=== PATIENT | female | born 1980 | race Caucasian/White ===

== ENCOUNTER 2024-11-05 07:56 | Outpatient (AMB) | payer OTHER, SELFPAY ==
--- NOTE | 2024-11-05 08:05 | A.OFFVIS_ITS ---
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 Hx of injury in February when she was doing a 5 mile walk. Patient reports ongoing pain since February. States her pain is focused near the groin area and it raps around her leg. Pain is worse when she is walking and running. Patient has tried 6 weeks of PT, NSAIDs, and at home exercises with resting with no relief. Allergies amoxicillin [From Augmentin] Allergy (Severe, Verified 11/05/24 08:14) intestinal distress clavulanic acid [From Augmentin] Allergy (Severe, Verified 11/05/24 08:14) intestinal distress HPI HPI TACK WELDER LT hip pain: Details: The patient is a 44-year-old female presenting with persistent left hip pain, which began in February subsequent to a long walk. Initially, the patient chose to rest, reducing physical activities such as running, but the pain continued unabated, exacerbating with physical exertion. Over the months, the patient has noted that physical activity worsens the pain, which is now a constant, bothersome symptom, peaking with activity. A subsequent back injury in the region of the sacroiliac joint around further complicated her musculoskeletal condition. Following a period of limited mobility, she engaged in a six-week course of physical therapy, which addressed both back and hip pain, yet the hip pain persists. The pain is localized to the left groin and is accompanied by an occasional clicking sensation during certain movements. Notably, physical maneuvers involving resistance, such as pushing the leg outwards, induce discomfort, specifically in the groin area, implicating possible weakness or strain. Despite these symptoms, there was no identifiable resolution through physical therapy, warranting further diagnostic evaluation. [facility] Social History (Updated 11/05/24 @ 08:15 by Debbie Hall) Alcohol intake: current Alcohol intake frequency: holidays/special occasions only Patient Tobacco Use Status: Never used Tobacco Current occupational status: employed Current occupation: Teacher/ right hand dominant Review of Systems Const All systems reviewed & are unremarkable except as noted in HPI and below Physical Exam Vital Signs: BMI result Body Mass Index 22.2 Const General: cooperative, healthy appearing and no acute distress Resp Effort & Inspection: normal respiratory effort and able to speak in complete sentences Cardio Rate: regular rate Peripheral pulses: Peripheral pulses 2+ throughout Skin Lesions: no lesions Rashes: no rashes Extrem Other: Left hip: Normal to inspection. Full hip ROM in all planes. No tenderness to palpation over the greater trochanteric bursa. 4/5 strength with resisted hip flexion, knee extension, abduction, and abduction. Reproduction of groin pain with resisted range of motion testing. Able to perform straight leg raise. NVI. Assessment & Plan Assessment & Plan (1) Left hip impingement syndrome: Code(s): M25.852 - Other specified joint disorders, left hip Category: Medical Plan I discussed with the patient the persistence of left hip pain and the limitations of x-ray imaging in assessing soft tissue conditions. I explained the necessity of obtaining an MRI to obtain a clearer understanding of her hip's condition, which may provide detailed information about any ligamentous, cartilaginous, or soft tissue abnormalities. I emphasized that this is a common step and not indicative of severe pathology. The patient was informed about the benefits of early diagnosis and potential treatment options. The implications of potential findings, as well as follow-up steps, were addressed thoroughly. The importance of communicating post-MRI was stressed to determine further management strategies. In the meantime, the patient will avoid any activities that exacerbate his pain until further guidance is provided. X-rays of the left hip and pelvis which were obtained while in the office today and were reviewed by me, Michelle Gastelum PA-C, revealed no acute abnormalities. Orders: Orders XR hip LT min 2V Today M25.559 - Pain in unspecified hip Coding Level of Care Code New Pt Level 4 (73765) Diagnoses Left hip impingement syndrome M25.852
[2024-11-05 08:15] VITALS: BMI 22.2
== END 2024-11-05 08:35 | disposition home or self-care (01) ==
LOC: HO.HOS 07:57
PROVIDERS: PCP Internal Medicine; Visit Provider Physician Assistant
DX: M25.852 Other specified joint disorders, left hip (principal)
CPT/HCPCS: 99203

== ENCOUNTER → 2024-11-05 07:58 | Outpatient (BNV) | payer OTHER, SELFPAY | PROVIDERS: Visit Provider Radiology Diagnostic Radiology | DX: M25.552 Pain in left hip (principal) | CPT/HCPCS: 73502 ==

== ENCOUNTER 2024-11-05 08:48 | Outpatient (REF) | payer OTHER, SELFPAY ==
--- NOTE | ~2024-11-05 | XR_ITS ---
EXAMINATION: XR HIP 2 OR MORE VIEWS LEFT HISTORY: M25.559 - Pain in unspecified hip COMPARISON: There are no prior studies for comparison. FINDINGS: A single AP view of the pelvis and two views of the left hip are submitted. Osseous mineralization is normal. There is no fracture or dislocation. The joint space is maintained. The soft tissues are unremarkable. XR/XR hip LT min 2V IMPRESSION: Unremarkable examination of the left hip. Electronically signed by: Damian Leyva MD 11/05/2024 01:51 PM EDT
== END 2024-11-05 08:49 | disposition home or self-care (01) ==
LOC: HO.HOSX 08:48
PROVIDERS: Visit Provider Physician Assistant
DX: M25.559 Pain in unspecified hip (principal)
CPT/HCPCS: 73502

== ENCOUNTER 2024-11-16 18:17 | Outpatient (REF) | payer OTHER, SELFPAY ==
--- NOTE | ~2024-11-16 | MR_ITS ---
CLINICAL HISTORY: M25.852 - Other specified joint disorders, left hip MR left hip Comparison: DX - XR HIP LT MIN 2V - 11/05/24 07:58 EDT Findings: No fracture, bone marrow edema or osseous lesion. No dislocation Normal alignment without subluxation. No retroversion, over coverage, os acetabuli. Normal head neck angle. No fibrocystic lesion of the femoral neck. No dysplasia. No joint effusion. No identified labral tear. The femoral and acetabular cartilage are intact. The capsule and ligaments are normal. Unremarkable muscle, tendons and entheses. Normal vessels, nerves and soft tissues. There dilated tortuous veins in the left pelvis. In the left adnexa there is fluid signal region measuring 3.0 cm in transverse dimension. Impression: Unremarkable left hip. Dilated, tortuous veins in the left pelvis may indicate pelvic congestion. Correlate clinically for signs/symptoms of pelvic congestion syndrome Fluid signal region in the left adnexa measuring 3.0 cm in transverse dimension could be a dilated pelvic vein or hydrosalpinx. Consider further evaluation with a dedicated pelvic ultrasound. This document has been electronically signed by: Yani Rubalcava MD on 11/19/2024 22:18:28
== END 2024-11-16 18:18 | disposition home or self-care (01) ==
LOC: HO.MRI 18:17
PROVIDERS: PCP Internal Medicine; Visit Provider Physician Assistant
DX: M25.852 Other specified joint disorders, left hip (principal)
CPT/HCPCS: 73721

== ENCOUNTER → 2024-11-16 18:25 | Outpatient (BNV) | payer OTHER, SELFPAY | PROVIDERS: PCP Internal Medicine; Visit Provider Radiology Diagnostic Radiology | DX: M25.852 Other specified joint disorders, left hip (principal) | CPT/HCPCS: 73721 ==

== ENCOUNTER 2024-11-23 10:13 | Outpatient (AMB) | payer OTHER, SELFPAY ==
--- NOTE | 2024-11-23 10:16 | A.OFFVIS_ITS ---
Intake Visit Reasons: Tele - left hip MRI review Intake Note: Laxmi is a 44 year old female who presents today via telephone for a MRI review of her left hip. Allergies amoxicillin [From Augmentin] Allergy (Severe, Verified 11/23/24 10:18) intestinal distress clavulanic acid [From Augmentin] Allergy (Severe, Verified 11/23/24 10:18) intestinal distress HPI HPI Tele - left hip MRI review: Details: Ms. Cohen is a 44-year-old female who presents via telehealth appointment for review of MRI imaging of the left hip. She reports continuation of symptoms with no change. [facility] Social History Alcohol intake: current Alcohol intake frequency: holidays/special occasions only Patient Tobacco Use Status: Never used Tobacco Current occupational status: employed Current occupation: Teacher/ right hand dominant Review of Systems Const All systems reviewed & are unremarkable except as noted in HPI and below Physical Exam Extrem Other: Deferred due to telehealth Telehealth Telehealth Telehealth Platform: Telephone Location of provider rendering services: practice address Location of patient: address on file Patient Identification confirmed using: Name, : Yes Telehealth method: voice only Patient verbally consented to treatment: Yes Patient verbally consented to billing insurance company: Yes Patient informed of any privacy concerns related to visit: Yes Minutes spent on Phone/Video with Pt.: 10 Assessment & Plan Assessment & Plan (1) Pelvic congestion syndrome: Code(s): N94.89 - Other specified conditions associated with female genital organs and menstrual cycle Category: Medical Plan During our telehealth appointment I discussed the results of the left hip MRI with the patient. Orthopedically the left hip is unremarkable. There is some question of pelvic congestion syndrome. Patient reports that she spoke with her primary care provider and was referred to [facility] for [facility] evaluation and treatment. I am in agreement with this plan. Should the patient wish to seek a 2nd opinion I am happy to place a referral to our vascular Department. Patient will follow up PRN, sooner if needed. Left hip MRI obtained on 11/19/2024: Impression: Unremarkable left hip. Dilated, tortuous veins in the left pelvis may indicate pelvic congestion. Correlate clinically for signs/symptoms of pelvic congestion syndrome Fluid signal region in the left adnexa measuring 3.0 cm in transverse dimension could be a dilated pelvic vein or hydrosalpinx. Consider further evaluation with a dedicated pelvic ultrasound. Coding Level of Care Code Est Pt Level 3 (71420) Diagnoses Pelvic congestion syndrome N94.89
--- OUTSIDE RECORDS SUMMARY | 2024-11-23 11:04 | XMS_ITS | Continuity of Care Document ---
Author Organization [facility] [address] [place] [address] Phone [phone] Social History Type Date Description Comments Sex Unknown Medical Devices Description No Information Available Encounters Description No Information Available Assessments Description No Information Available Plan of Treatment No Information Available Functional Status Description No Information Available Mental Status Description No Information Available Referrals Description No Information Available
--- OUTSIDE RECORDS SUMMARY | 2024-11-23 11:04 | XMS_ITS | Continuity of Care Document ---
Author Organization [facility] [place] [address] [place] [address]- Care Team Providers Care Agent Ticketing Gate Name Role Phone Abdullahi Mast MD Primary Care Physician Encounter 11/14/24 - 11/21/24 [facility] [address], [address] [place], [place] [address] Attending Physician: Staci Lockett CNM Admitting Physician: Staci Lockett CNM Referring Physician: Staci Lockett CNM Encounter Type: OutPatient One Time Allergies, Adverse Reactions, Alerts No Known Allergies Immunizations Given and Recorded Vaccine Date Status Refusal Reason tetanus/diphtheria/pertussis, acel(Tdap) 1 10/31/11 Given 1Admin Note: VIS given 08/31/11 Medications Breast Pump See Instructions, # 1 units, Maintenance, double electric-use as directed, 02/28/13 11:28:26 AM EDT Start Date: 02/28/13 Status: Ordered Quantity: 1.0 Unit: Units Repeat number: 1 Colace sodium 100 mg oral capsule 1 capsule = 100 mg, By Mouth, 2 times a day, PRN for constipation, # 20 capsule, 0 Refills, Maintenance, 02/28/13 11:28:19 AM EDT, Capsule Start Date: 02/28/13 Status: Ordered Quantity: 20.0 Unit: capsule Repeat number: 1 Diflucan Tablet 150 mg, By Mouth, Once, # 1 capsule, Refills 1, Tot. Refills 1, 06/20/09 3:27:54 PM EST Start Date: 06/20/09 Status: Ordered Quantity: 1.0 Unit: capsule Repeat number: 2 ibuprofen 600 mg oral tablet 1 tablet = 600 mg, By Mouth, 4 times a day, PRN Pain, # 40 tablet, 0 Refills, Maintenance, 02/28/13 11:28:01 AM EDT, Tablet Start Date: 02/28/13 Status: Ordered Quantity: 40.0 Unit: tablet Repeat number: 1 Ortho Tri-Cyclen 1 tablet, By Mouth, Daily, # 28 tablet, 2 Refills, 01/09/07 10:05:18 AM EDT Start Date: 01/09/07 Stop Date: 04/03/07 Status: Ordered Quantity: 28.0 Unit: tablet Repeat number: 3 Ortho Tri-Cyclen oral tablet 1 tablet, By Mouth, Daily, # 28 tablet, 3 Refills, Maintenance, 03/12/10 5:15:46 PM EDT, [id number] Start Date: 03/12/10 Status: Ordered Quantity: 28.0 Unit: tablet Repeat number: 4 Ortho Tri-Cyclen oral tablet 1, tablet, By Mouth, Daily, # 28 tablet, 1 Refills Start Date: 02/22/08 Stop Date: 04/18/08 Status: Ordered Quantity: 28.0 Unit: tablet Repeat number: 2 oxycodone 5 mg oral tablet 1 tablet = 5 mg, By Mouth, Every 4 hours, PRN for pain, # 30 tablet, 0 Refills, Maintenance, 02/28/13 11:28:24 AM EDT, Tablet Start Date: 02/28/13 Status: Ordered Quantity: 30.0 Unit: tablet Repeat number: 1 Tri-Sprintec oral tablet 1 tablet, By Mouth, Daily, # 28 tablet, 11 Refills, Maintenance, 07/01/10 2:49:59 PM EST, [id number] Start Date: 07/01/10 Stop Date: 06/02/11 Status: Ordered Quantity: 28.0 Unit: tablet Repeat number: 12 Problem List Condition Confirmation Course Effective Dates Status [facility] Informant Carlos portillo Confirmed Active Results Radiology Reports * Exam Date Time Procedure Performing Provider Status 11/14/24 3:20 PM US Breast Bilateral Limited Yong Clemente otoniel; Auth (Verified) Notes: (US Breast Bilateral Limited) Reason For Exam: 1 year bilateral follow up RESULT: US Breast Bilateral Limited PROCEDURE: MM Digital Mammo Bilateral, US Breast Bilateral Limited INDICATION: Probably benign bilateral breast masses, short-term interval surveillance. COMPARISON: Multiple prior mammograms most recently dated 11/08/2023. TECHNIQUE: Digital diagnostic mammogram consisting of full field 3-D Tomosynthesis views of each breast in the CC and MLO projections. Computer-aided detection (CAD) was utilized in the interpretation of this study. Targeted ultrasound evaluation of each breast was also performed DENSITY: The breast tissue is heterogeneously dense, which may obscure small masses. FINDINGS: Right breast: Subcentimeter focal asymmetry within the anterolateral right breast is stable in size dating back to 10/12/2022. No evidence of developing mass, suspicious clustering of microcalcification, architectural distortion, or secondary sign of malignancy. Targeted ultrasound evaluation of the right breast was performed centered at 8:00 3 cm from the nipple. 0.3 x 0.2 cm hypoechoic focus containing a probable echogenic hilus has not significantly changed in appearance over 2 years of follow-up in keeping with a benign finding likely intramammary lymph node. Left breast: Asymmetry under surveillance within the anterior third lateral to the nipple line seen on CC tomographic image 13 of 63 is stable in size. No evidence of developing mass, suspicious clustering of microcalcification, architectural distortion, or secondary sign of malignancy. Targeted ultrasound evaluation of the left breast was performed centered at 4:00 4 cm from the nipple 0.2 x 0.2 x 0.2 cm nodule isoechoic to surrounding fat is stable in size over 2 years of follow-up in keeping with benign finding. IMPRESSION: Bilateral breast asymmetries and sonographic correlates are stable in size over 2 yearsof follow-up in keeping with benign findings No mammographic evidence of malignancy or adverse interval change. RECOMMENDATION: Annual mammographic screening BI-RADS: 2 (Benign) Lay letter mailed to patient WSN: [id number] Ordering Physician: Staci Lockett Dictated By: Kavon Lozada Jr, MD Dictated Date/Time: 11/14/24 4:19 pm Reviewed By: Kavon Lozada Jr, MD Signed By: Kavon Lozada Jr, MD Signed Date/Time: 11/14/24 4:19 pm Transcribed By: CSB Transcribed Date/Time: 11/14/24 3:22 pm * Exam Date Time Procedure Performing Provider Status 11/14/24 2:46 PM MM Digital Mammo Bilateral Valdivia , Melissa gil; Auth (Verified) Notes: (MM Digital Mammo Bilateral) Reason For Exam: 1 year bilateral follow up RESULT: MM Digital Mammo Bilateral PROCEDURE: MM Digital Mammo Bilateral, US Breast Bilateral Limited INDICATION: Probably benign bilateral breast masses, short-term interval surveillance. COMPARISON: Multiple prior mammograms most recently dated 11/08/2023. TECHNIQUE: Digital diagnostic mammogram consisting of full field 3-D Tomosynthesis views of each breast in the CC and MLO projections. Computer-aided detection (CAD) was utilized in the interpretation of this study. Targeted ultrasound evaluation of each breast was also performed DENSITY: The breast tissue is heterogeneously dense, which may obscure small masses. FINDINGS: Right breast: Subcentimeter focal asymmetry within the anterolateral right breast is stable in size dating back to 10/12/2022. No evidence of developing mass, suspicious clustering of microcalcification, architectural distortion, or secondary sign of malignancy. Targeted ultrasound evaluation of the right breast was performed centered at 8:00 3 cm from the nipple. 0.3 x 0.2 cm hypoechoic focus containing a probable echogenic hilus has not significantly changed in appearance over 2 years of follow-up in keeping with a benign finding likely intramammary lymph node. Left breast: Asymmetry under surveillance within the anterior third lateral to the nipple line seen on CC tomographic image 13 of 63 is stable in size. No evidence of developing mass, suspicious clustering of microcalcification, architectural distortion, or secondary sign of malignancy. Targeted ultrasound evaluation of the left breast was performed centered at 4:00 4 cm from the nipple 0.2 x 0.2 x 0.2 cm nodule isoechoic to surrounding fat is stable in size over 2 years of follow-up in keeping with benign finding. IMPRESSION: Bilateral breast asymmetries and sonographic correlates are stable in size over 2 yearsof follow-up in keeping with benign findings No mammographic evidence of malignancy or adverse interval change. RECOMMENDATION: Annual mammographic screening BI-RADS: 2 (Benign) Lay letter mailed to patient WSN: [id number] Ordering Physician: Staci Lockett Dictated By: Neville Castro MD, Kavon Foote Dictated Date/Time: 11/14/24 4:19 pm Reviewed By: Kavon Lozada Jr, MD Signed By: Kavon Lozada Jr, MD Signed Date/Time: 11/14/24 4:19 pm Transcribed By: KINGA [employer] Retailer Sales Consultant Date/Time: 11/14/24 3:22 pm Birads: Patient Care team information Care Team Personnel Name: Adeline PERSON, Ansley Urena Position: [facility] PROGRAM HOST MD Member Role: [employer] PROGRAM HOST Physician Address: [address] [place] [address], [facility] [address] [facility] [place] [address]- Telecom: Name: Abdullahi Mast MD Position: [facility] Outreach Member Role: PCP Address: [address] [place] [address]- Telecom: Care Team Related Persons Name: CLINT ROMERO Name: ALEJANDRA CARTWRIGHT Insurance Providers Guarantor name: NERI CARTWRIGHT Health Plan Information #: 1 Payer: [employer] FF NON [employer] HMO Member Number: [id number] Policy Number: NA Group Number: [id number] Health Plan Information #: 2 Payer: [employer] FF NON [employer] HMO Member Number: [id number] Policy Number: NA Group Number: NA
== END 2024-11-23 10:18 | disposition home or self-care (01) ==
LOC: HO.HOS 10:13
PROVIDERS: PCP Internal Medicine; Visit Provider Physician Assistant
DX: M25.552 Pain in left hip (principal); N94.89 Other specified conditions associated with female genital organs and menstrual cycle
CPT/HCPCS: 99213